=== PATIENT | female | born 1990 | race Caucasian/White ===

== ENCOUNTER 2020-07-20 17:42 | Observation (INO) | payer BC, SELFPAY ==
[2020-07-20 17:47] VITALS: BP 117/54; PULSE 130; RESP 18; TEMP 36.6; O2SAT 99
--- NOTE | 2020-07-20 17:57 | ED.GENADUL_ITS ---
Discharge Plan Disposition Condition: Fair Discharge Details Chief Complaint: PMO BUSINESS ANALYST Admit Date/Time: 07/20/20 19:14 Admit Provider: Sary Danielson Attending Provider: Sary Danielson Primary Care Provider: None,None ED Provider: Rosenda Pena Discharge Instructions Activity:: Activity as Tolerated Equipment/Supplies:: No Equipment Needed Diet:: As Tolerated Discharge Orders Discharge Orders: Discharge Order (Routine); Ordered 07/21/20 Ordered By: Sary Danielson Discharge Data Discharge Date/Time-TO BE ENTERED AT DEPARTURE: 07/20/20 18:55 Medical Decision Making Patient is a pleasant 30-year-old female presenting today with chief complaint of left lower quadrant pain. She reports that she is 25 weeks gestation with her first . She states that she drove up her from [place] in the last few days and began having some discomfort in this region last night. States the pain can radiate to the left flank as well as to the mid anterior left thigh. She states that she has been having some vaginal discharge but states that the slight increase for her normal vaginal discharge. She denies any bloody discharge. Said that she been having normal bowel movements. No change in urinary habits. No fevers or chills. Reports that the pain has been severe enough to induce nausea but no vomiting. Has had diminished appetite but states that this is again related to pain. States that thus far she has had an uncomplicated normal . On exam, patient appears anxious and uncomfortable. She is tachycardic with heart rate of 130. Lung sounds are clear. Patient denies feeling short of breath. No chest pain. She has no lower extremity edema, calves are soft and nontender. 2+ distal pulses. Abdominal exam is consistent with gestational age. She is clearly tender on the left lower quadrant. No peritoneal findings. Plan to give the patient IV acetaminophen and morphine to help with discomfort. heart rate 160. Consulted with Dr. Danielson. Considered unusual presentation of appendicitis, ovarian torsion, diverticulitis, DVT, kidney stone. Patient and her did describe up from [place] few weeks ago to [place] and subsequently from [place] to [place]. Patient does not otherwise exam would like a DVT. History is not consistent with premature labor. Dr. Danielson feels the patient should be admitted and placed on a monitor. She advised that she will keep patient comfortable overnight and evaluate with an ultrasound tomorrow. I did discuss plan with the patient. She is in agreement with admission and ultrasound tomorrow. This would be the safest option to avoid radiation. I also spoke with the patient and let him know about the plan. He is staying locally. Patient only received 1 mg of morphine. Reports feeling improved with the IV acetaminophen. She does appear much more calm with this plan set in place with medications on board. Labs reviewed. Like elevated at 14.4. Persistently anemic with hemoglobin 11.1. Potassium slightly low at 2, plan to replenish this orally. Lipase within normal limits. She did have ketones in her urine but otherwise no abnormalities, nothing to suggest infection. Patient transferred up to labor and delivery unit in stable condition. HPI General Mode of arrival: ambulatory . Date/Time Provider Initiated Documentation: 07/20/20 17:56 . Limitations to Documentation: no limitations . Information obtained by: patient and RN notes reviewed . History of Present Illness 30 year old F presents to the emergency department with the chief complaint of LLQ abdominal pain, described as severe, with intensity rated at 8. Quality is described as stabbing, and is localized to the abdomen. Patient extremity (anterior left mid thigh). Patient started experiencing this day(s) (yesterday evening) and it has been constant and intermittent (constant pain with intermittent spikes in pain). No relieving factors improve symptom(s), No exacerbating factors reported . Patient notes nausea/vomiting (reports nausea, feels this is pain induced); denies chest pain, cough, fever/chills, headaches, loss of appetite, rash, shortness of breath and weakness. Patient did receive the following treatments prior to arrival, none Related Data Home Medications Medication Instructions Recorded Confirmed ascorbic acid (vitamin C) [Vitamin 1,500 mg PO DAILY 07/20/20 07/20/20 C] no.144-folic acid 1 tab PO DAILY 07/20/20 07/20/20 [] hydromorphone 2 mg tablet 2 mg PO Q6H PRN #8 tab MDD 4tablets 07/21/20 ondansetron 4 mg disintegrating 4 mg PO Q8H PRN #10 tab 07/21/20 tablet Previous Rx's Medication Instructions Recorded hydromorphone 2 mg tablet 2 mg PO Q6H PRN #8 tab MDD 4tablets 07/21/20 ondansetron 4 mg disintegrating 4 mg PO Q8H PRN #10 tab 07/21/20 tablet Allergies Allergy/AdvReac Type Severity Reaction Status Date / Time No Known Allergies Allergy Unverified 07/20/20 17:51 General Stated Complaint: PMO BUSINESS ANALYST EVELYN: 2 Review of Systems Constitutional Constitutional: Reports as per HPI, Denies chills, Denies fatigue, Denies fever(s) and Denies headache(s) ENT Ears, Nose, Mouth, and Throat: Denies headache(s) Cardiovascular Cardiovascular: Reports as per HPI, Denies chest pain and Denies dyspnea Respiratory Respiratory: Reports as per HPI, Denies cough and Denies dyspnea Gastrointestinal Gastrointestinal: Reports as per HPI Musculoskeletal Musculoskeletal: Reports as per HPI and Denies back pain Integumentary/Breasts Skin/Breast: Reports as per HPI and Denies rash Neurologic Neurologic: Reports as per HPI and Denies headache(s) Endocrine Endocrine: Denies fatigue PFSH Medical History (Updated 07/21/20 @ 12:44 by Sary Danielson MD) LLQ pain Rh negative state in antepartum period Surgical History (Updated 07/20/20 @ 19:47 by Sary Danielson MD) History of tonsillectomy Family History (Updated 07/20/20 @ 19:51 by Sary Danielson MD) Mother , 01/2020 from lung cancer 58yo Cancer Social History (Updated 07/20/20 @ 19:50 by Sary Danielson MD) Smoking/Tobacco Use Status: Never Smoking risk assessment performed?: Yes Alcohol Intake: never Drug use: Never Household members: spouse and other Details: H-Morro, in relationship since HS. Work together from home Housing: other Details: home in [place]. Have cabin in [place] - travel for leisure Number of Children: 0 current occupation: [employer] Sexually active: Yes Current gender identity: female Do you feel safe at home: Yes Do you feel safe in your relationship?: Yes History History 1 Para Hx # Term Pregnancies Multiple births Hx # Pregnancies Ectopic pregnancies AB induced Hx Number of Living Children 0 AB spontaneous Exam Const General: cooperative, healthy appearing, uncomfortable, no acute distress, well developed and anxious Nutritional Appearance: average body habitus and well nourished Orientation: alert and awake [facility] Head: normal to inspection Mouth: moist mucous membranes Resp Effort & Inspection: normal respiratory effort, able to speak in complete sentences and no respiratory distress Auscultation: clear to auscultation bilaterally, no rales, no rhonchi and no wheezes Cardio Rate: tachycardic Rhythm: regular rhythm Heart Sounds: S1 normal and S2 normal GI Inspection: normal to inspection (appropriate for gestational age) Palpation: soft, no hepatosplenomegaly, not firm, no guarding, no masses, not rigid and tender in the LLQ; with no rebound tenderness Percussion: normal to percussion Back/Spine/Pelvis Back: no CVA tenderness Skin General skin exam: no rashes or lesions noted Trauma: no lacerations or abrasions Neuro General: patient alert and patient awake Cognition: normal cognition Speech: speech normal Gait: normal gait Extrem General: normal to inspection, no pedal edema, no calf tenderness and normal gait Psych Appearance: grossly normal and well kempt Mental Status: mental status grossly normal Speech and Movement: speech and movement normal Course Vital Signs Vital signs: Vital Signs Temperature 36.6 C 07/20/20 17:47 Pulse 130 H 07/20/20 17:47 Respiratory Rate 18 07/20/20 17:47 Blood Pressure 117/54 L 07/20/20 17:47 Pulse Oximetry 99 07/20/20 17:47 Temperature 36.6 C 07/20/20 17:47 Temperature Source Temporal Artery Scan 07/20/20 17:47 Pulse 130 H 07/20/20 17:47 Respiratory Rate 18 07/20/20 17:47 Respiratory Effort Non-Labored 07/20/20 17:55 Blood Pressure 117/54 L 07/20/20 17:47 Blood Pressure Position Sitting 07/20/20 17:47 Pulse Oximetry 99 07/20/20 17:47 Oxygen Delivery Method Room Air 07/20/20 17:47 Oxygen Flow Rate 0 07/20/20 17:47 Pain Level 8 07/20/20 17:47
[2020-07-20] MEDS: Normal Saline Flush 10 ML SYR IVP (18:00)
[2020-07-20] MEDS: Normal Saline 1,000 ML 1000 ML IV (18:00)
[2020-07-20 18:13] LABS: Abs Immature Grans 0.07 10^3/uL (0.0-0.06); Absolute Eosinophil Count 0.07 10^3/uL (0.0-0.7); Absolute Lymphocyte Count 1.86 10^3/uL (1.2-3.4); Absolute Monocyte Count 0.59 10^3/uL (0.1-0.8); Absolute Neutrophil Count 11.79 10^3/uL (1.2-6.7); Basophils % 0.1; Eosinophils % 0.5; HGB 11.1 g/dL (11.2-15.7); Immature Grans % 0.5; Lymphocytes % 12.9; MCH 29.1 pg (27.0-33.0); MCHC 33.6 % (32.0-36.0); MCV 86.4 fL (80-95); MPV 8.1 fL (8.0-11.0); Monocytes % 4.1; Neutrophils % 81.9; Nucleated RBC 0 %; Platelet Count 323 10^3/uL (130-400); RBC 3.82 10^6/uL (3.93-5.22); RDW 13.1 % (11.7-14.6); RDW-SD 40.6 fL
[2020-07-20 18:14] LABS: Absolute Basophil Count 0.01 10^3/uL (0.0-0.2)
[2020-07-20 18:27] LABS: Bilirubin Negative (Negative); Blood Negative (Negative); Clarity Clear (Clear); Glucose Negative (Negative); Ketones >=160 mg/dL (Negative); Leukocyte Esterase Negative (Negative); Nitrite Negative (Negative); Specific Gravity 1.025 (1.005-1.025); Urobilinogen 0.2 EU/dL (Up TO 0.2)
[2020-07-20 18:32] LABS: ALT 14 U/L (14-59); AST 9 U/L (15-37); Albumin 2.8 g/dL (3.4-5.0); Alkaline Phosphatase 88 U/L (46-116); Anion Gap 12.3 mmol/L (3-11); BUN 4 mg/dL (7-18); Bilirubin, Total 0.2 mg/dL (0.2-1.0); CO2 22.7 mmol/L (21.0-32.0); CREATININE 0.5 mg/dL (0.55-1.02); Calcium 8.7 mg/dL (8.5-10.1); Chloride 103 mmol/L (98-107); Glucose 113 mg/dL (74-106); Potassium 3.2 mmol/L (3.5-5.1); Sodium 138 mmol/L (136-145); Total Protein 7.3 g/dL (6.4-8.2)
[2020-07-20 18:33] LABS: Lipase 82 U/L (73-393)
[2020-07-20] MEDS: ACETAMINOPHEN 1,000 MG/100 ML BTL 400 MG IVPB (18:52)
[2020-07-20] MEDS: Normal Saline 1,000 ML 200 ML IV (18:52)
--- NOTE | 2020-07-20 18:53 | NUR.NOTE ---
Nursing Note: Morro partner [phone]
[2020-07-20 18:54] LABS: Source Nasopharynx
--- NOTE | 2020-07-20 18:54 | NUR.NOTE ---
Nursing Note: Morro conklin [phone] Carmen Purcell
[2020-07-20 19:19] VITALS: BP 121/73; PULSE 118; RESP 18; TEMP 36.8; O2SAT 97
[2020-07-20 19:19] LABS: COVID-19 PCR Negative (Negative); Influenza A PCR Negative (Negative); Influenza B PCR Negative (Negative); RSV PCR Negative (Negative)
[2020-07-20 19:30] VITALS: BP 121/73; PULSE 118; TEMP 36.8
--- NOTE | 2020-07-20 19:41 | W.PM.HP.N ---
Date of service: 07/20/20 Time of Service: 19:42 Assessment and Plan Assessment and plan (1) LLQ pain: Status: Acute Assessment and plan: Differential diagnosis includes left ovarian cyst versus fibroid uterus versus ovarian torsion. Plan at this time is to administer pain medication to the patient and have a pelvic ultrasound performed in the morning. (2) : Status: Acute Assessment and plan: Patient has received care [id number]. She is currently 25-6/7 weeks estimated stational age. has been uncomplicated. (3) Rh negative state in antepartum period: Status: Acute History of Present Illness History of Present Illness Chief Complaint: Pt is a 30yo female currently 25w6d EGA with LLQ pain Consults Consult date: 07/20/20 Requesting physician: Rosenda Pena Review of Systems Narrative: Pt experienced mild LLQ pain ~ 2w ago that resolved in 24hr. Other navarro unremarkable course. Pain began yesterday and required Tylenol last night. Increased in severity today. Localized to LLQ, exacerbated by stretching or lifting L leg. Nauseated today. No emesis. No contractions. + movement. No fevery Constitutional Constitutional: Reports as per HPI, Denies chills and Denies fever(s) Gastrointestinal Gastrointestinal: Reports abdominal pain (LLQ. Focally located above superior anterior illiac crest), Denies change in bowel habits, Denies diarrhea and Reports nausea Genitourinary Genitourinary: Reports amenorrhea, Denies vaginal discharge and Denies vaginal odor Musculoskeletal Musculoskeletal: Reports system reviewed and no additional complaints, except as documented Psychiatric Psychiatric: Reports anxiety (regarding pain and effect on fetus and ) [facility] Medical History (Updated 07/20/20 @ 20:02 by Sary Danielson MD) LLQ pain Rh negative state in antepartum period Surgical History (Updated 07/20/20 @ 19:47 by Sary Danielson MD) History of tonsillectomy Family History (Updated 07/20/20 @ 19:51 by Sary Danielson MD) Mother , 01/2020 from lung cancer 58yo Cancer Social History (Updated 07/20/20 @ 19:50 by Sary Dainelson MD) Smoking/Tobacco Use Status: Never Smoking risk assessment performed?: Yes Alcohol Intake: never Drug use: Never Household members: spouse and other Details: Liudmila-Morro, in relationship since HS. Work together from home Housing: other Details: home in [place]. Have cabin in [place] - travel for leisure Number of Children: 0 current occupation: [employer] Sexually active: Yes Current gender identity: female Do you feel safe at home: Yes Do you feel safe in your relationship?: Yes History History 1 Para Hx # Term Pregnancies Multiple births Hx # Pregnancies Ectopic pregnancies AB induced Hx Number of Living Children 0 AB spontaneous Meds Home Medications and Allergies Home Medications Medication Instructions Recorded Confirmed Type ascorbic acid (vitamin C) [Vitamin 1,500 mg PO DAILY 07/20/20 07/20/20 History C] no.144-folic acid 1 tab PO DAILY 07/20/20 07/20/20 History [] Allergies Allergy/AdvReac Type Severity Reaction Status Date / Time No Known Allergies Allergy Unverified 07/20/20 17:51 Exam Narrative Exam Narrative: In the emergency department patient received 1 mg IV morphine and IV Tylenol. Upon arrival to the floor she was able to ambulate to the toilet. She has difficulty lifting her left leg onto the bed secondary to pelvic discomfort Const General: no acute distress and anxious Nutritional Appearance: average body habitus Orientation: alert, awake and oriented x3 Neck Neck: normal visual inspection Thyroid: thyroid normal Lymphatic: no lymphadenopathy noted Resp Effort & Inspection: normal respiratory effort Auscultation: clear to auscultation bilaterally Cardio Rate: tachycardic Rhythm: regular rhythm GI Inspection: normal to inspection Palpation: soft, no hepatosplenomegaly and other (Gravid. No focal uterine tenderness. Pain elicited as noted on H&P) Auscultation: normal bowel sounds General: No CVA tenderness Other: Vaginal exam: Cervix closed firm long nontender. No adnexal masses appreciated. Fetus in variable position as noted on vaginal exam Skin General skin exam: no rashes or lesions noted (Tattoo on dorsum of foot) Extrem General: normal to inspection, full ROM and no clubbing, cyanosis or edema Psych Appearance: disheveled Mental Status: mental status grossly normal Speech and Movement: speech and movement normal Mood: congruent mood Affect: normal affect Attitude: cooperative Thought Process: normal Thought Content: normal Insight: insight good Judgment: judgment good Results Labs Result diagrams: 07/20/20 18:00 07/20/20 18:00 Labs: Laboratory Results - last 24 hr 07/20/20 07/20/20 07/20/20 18:00 18:00 18:00 WBC 14.40 H RBC 3.82 L Hgb 11.1 L Hct 33.0 L MCV 86.4 MCH 29.1 MCHC 33.6 RDW 13.1 Plt Count 323 MPV 8.1 Immature Gran % 0.5 Neutrophils % 81.9 Lymphocytes % 12.9 Monocytes % 4.1 Eosinophils % 0.5 Basophils % 0.1 Nucleated RBC % 0 Absolute Neutrophils 11.79 H Absolute Lymphocytes 1.86 Absolute Monocytes 0.59 Absolute Eosinophils 0.07 Absolute Basophils 0.01 Sodium 138 Potassium 3.2 L Chloride 103 Carbon Dioxide 22.7 Anion Gap 12.3 H BUN 4 L Creatinine 0.5 L Estimated GFR/1.73 m2 >= 60.00 Glucose 113 H Calcium 8.7 Total Bilirubin 0.2 AST 9 L ALT 14 Alkaline Phosphatase 88 Total Protein 7.3 Albumin 2.8 L Lipase Urine Color Urine Clarity Urine pH Ur Specific [place] Urine Protein Urine Ketones Urine Blood Urine Nitrite Urine Bilirubin Urine Urobilinogen Ur Leukocyte Esterase Urine Glucose COVID-19 Source SARS-CoV-2 (PCR) Influenza Type A (PCR) Influenza Type B (PCR) RSV (PCR) Patient ABO/Rh A Negative Antibody Screen Negative 07/20/20 07/20/20 07/20/20 18:00 18:20 18:25 WBC RBC Hgb Hct MCV MCH MCHC RDW Plt Count MPV Immature Gran % Neutrophils % Lymphocytes % Monocytes % Eosinophils % Basophils % Nucleated RBC % Absolute Neutrophils Absolute Lymphocytes Absolute Monocytes Absolute Eosinophils Absolute Basophils Sodium Potassium Chloride Carbon Dioxide Anion Gap BUN Creatinine Estimated GFR/1.73 m2 Glucose Calcium Total Bilirubin AST ALT Alkaline Phosphatase Total Protein Albumin Lipase 82 Urine Color Yellow Urine Clarity Clear Urine pH 7.0 Ur Specific [place] 1.025 Urine Protein Negative Urine Ketones >=160 H Urine Blood Negative Urine Nitrite Negative Urine Bilirubin Negative Urine Urobilinogen 0.2 Ur Leukocyte Esterase Negative Urine Glucose Negative COVID-19 Source Nasopharynx SARS-CoV-2 (PCR) Negative Influenza Type A (PCR) Negative Influenza Type B (PCR) Negative RSV (PCR) Negative Patient ABO/Rh Antibody Screen Last Vital Signs Temp 98.2 F 07/20/20 19:19 Pulse 118 H 07/20/20 19:19 Resp 18 02/07/21 19:19 BP 121/73 07/20/20 19:19 Pulse Ox 97 07/20/20 19:19 COVID-19 Screening Have you, or household traveled for leisure in last 14 days?: Yes Had IN PERSON contact w/suspected or confirmed C-19 person: No
[2020-07-20] MEDS: Lactated Ringers 1,000 ML 125 ML IV (19:56)
[2020-07-20] MEDS: oxyCODONE 5 MG TAB PO ×2 (20:39→22:27)
[2020-07-20 21:12] LABS: *AMPHETAMINES SCREEN URINE Negative (Negative); *BARBITURATES SCREEN URINE Negative (Negative); *BENZODIAZEPINES SCREEN URINE Negative (Negative); Cannabinoids THC Negative (Negative); Cocaine Screen,Urine Negative (Negative); METHADONE URINE SCREEN Negative (Negative); OPIATES URINE SCREEN POSITIVE (Negative); Tricyclic Antidepressants Negative (Negative)
[2020-07-20 21:25] VITALS: RESP 18
[2020-07-20 22:38] VITALS: BP 127/79; PULSE 121; RESP 18; TEMP 36.5; O2SAT 98
--- NOTE | 2020-07-21 | DI.US_ITS ---
EXAM: US OB [facility] WEIGHT CLINICAL HISTORY: LLQ pain at 25w EGA.. TECHNIQUE: Transabdominal obstetrical ultrasound performed. COMPARISON: No exams were available for comparison FINDINGS: Transabdominal obstetrical ultrasound performed. FINDINGS: Number of fetuses: One. position: Breech. Placental location: Anterior. Unremarkable. No evidence of previa. Uterus: There is a 1.5 x 1 cm hypoechoic mass in the anterior uterus which may represent a small fibr oid. BIOMETRIC DATA: BPD: 61 mm = 24 weeks 5 days HC: 238 mm = 25 weeks 6 days AC: 215 mm = 26 weeks FL: 47 mm = 25 weeks 5 days EFW: 855 grms 56% Composite Age: 25 weeks 4 days EDC: 10/30/2020 Heart Rate: 143BPM Amniotic fluid index: 19.8 cm. Visually, amount of fluid is within normal limits. Left ovary: Visualized and grossly unremarkable. Normal color flow is identified. IMPRESSION: 1. Single live intrauterine gestation as above. 2. Estimated weight is 855gms. 3. Amniotic fluid index is 19.8 cm. Visually within normal limits. DATA REPOSITORY:
--- NOTE | 2020-07-21 00:37 | NUR.NOTE ---
Nurses Note: Pt awake but reports ability to sleep on and off. Pt rates pain 2-3/10 and appears comfortable
[2020-07-21] MEDS: oxyCODONE 5 MG TAB PO ×2 (01:49→06:02)
[2020-07-21] MEDS: Acetaminophen 325 MG TAB PO ×2 (01:50→13:38)
[2020-07-21] MEDS: Lactated Ringers 1,000 ML 125 ML IV (03:31)
[2020-07-21 05:09] VITALS: BP 112/63; PULSE 122; RESP 16; TEMP 36.5; O2SAT 98
[2020-07-21] MEDS: Ondansetron 4 MG TAB PO (05:39)
[2020-07-21 07:17] LABS: HCT 27.8 % (36.0-46.0); HGB 9.5 g/dL (11.2-15.7); MCH 29.1 pg (27.0-33.0); MCHC 34.2 % (32.0-36.0); MCV 85.3 fL (80-95); Platelet Count 262 10^3/uL (130-400); RBC 3.26 10^6/uL (3.93-5.22); RDW 13.1 % (11.7-14.6); RDW-SD 40.5 fL; WBC 11.54 10^3/uL (4.4-10.8)
[2020-07-21 07:27] VITALS: BP 117/66; PULSE 108; RESP 20; TEMP 36.5; O2SAT 98
--- NOTE | 2020-07-21 07:32 | W.PM.PROGNOT ---
Date of Service Date of service: 07/21/20 Time of Service: 07:32 Assessment and Plan Assessment and plan (1) LLQ pain: Status: Acute (2) : Status: Acute Qualifiers: Weeks of gestation: 26 weeks Qualified Code(s): Z3A.26 - 26 weeks gestation of Subjective Subjective Patient reports: still having pain, pain is less (took oxycodone 3x during night.), nausea and vomiting (after taking oxycodone on empty stomach) Exam Narrative Exam Narrative: HD2 currently 26w EGA admitted for LLQ pain. Focal tenderness last night has improved but not resolved. VSS. WBC c/w . Plan for u/s in DI this morning. Const General: disheveled (sitting up in bed.) Nutritional Appearance: average body habitus Orientation: alert, awake and oriented x3 Resp Effort & Inspection: normal respiratory effort Cardio Rate: tachycardic GI Inspection: normal to inspection and other Palpation: mass (Gravid. Fundus above umbilicus) and tender in the LLQ (improved but not completely resolved. Focally tender L side of uterus.) General: deferred Other: FHR 150s. No contractions during the night. Skin General skin exam: no rashes or lesions noted Extrem General: normal to inspection Psych Appearance: grossly normal Mental Status: mental status grossly normal Speech and Movement: speech and movement normal Objective Last Vital Signs Temp 97.7 F 07/21/20 05:09 Pulse 122 H 07/21/20 05:09 Resp 16 07/21/20 05:09 BP 112/63 07/21/20 05:09 Pulse Ox 98 07/21/20 05:09 Laboratory Results - last 24 hr 07/20/20 07/20/20 07/20/20 18:00 18:00 18:00 WBC 14.40 H RBC 3.82 L Hgb 11.1 L Hct 33.0 L MCV 86.4 MCH 29.1 MCHC 33.6 RDW 13.1 Plt Count 323 MPV 8.1 Immature Gran % 0.5 Neutrophils % 81.9 Lymphocytes % 12.9 Monocytes % 4.1 Eosinophils % 0.5 Basophils % 0.1 Nucleated RBC % 0 Absolute Neutrophils 11.79 H Absolute Lymphocytes 1.86 Absolute Monocytes 0.59 Absolute Eosinophils 0.07 Absolute Basophils 0.01 Sodium 138 Potassium 3.2 L Chloride 103 Carbon Dioxide 22.7 Anion Gap 12.3 H BUN 4 L Creatinine 0.5 L Estimated GFR/1.73 m2 >= 60.00 Glucose 113 H Calcium 8.7 Total Bilirubin 0.2 AST 9 L ALT 14 Alkaline Phosphatase 88 Total Protein 7.3 Albumin 2.8 L Lipase Urine Color Urine Clarity Urine pH Ur Specific [place] Urine Protein Urine Ketones Urine Blood Urine Nitrite Urine Bilirubin Urine Urobilinogen Ur Leukocyte Esterase Urine Glucose Urine Opiates Screen Urine Methadone Screen Ur Barbiturates Screen Ur Tricyclics Screen Ur Amphetamines Screen U Benzodiazepines Scrn Urine Cocaine Screen Ur THC Screen COVID-19 Source SARS-CoV-2 (PCR) Influenza Type A (PCR) Influenza Type B (PCR) RSV (PCR) Patient ABO/Rh A Negative Antibody Screen Negative 07/20/20 07/20/20 07/20/20 18:00 18:20 18:25 WBC RBC Hgb Hct MCV MCH MCHC RDW Plt Count MPV Immature Gran % Neutrophils % Lymphocytes % Monocytes % Eosinophils % Basophils % Nucleated RBC % Absolute Neutrophils Absolute Lymphocytes Absolute Monocytes Absolute Eosinophils Absolute Basophils Sodium Potassium Chloride Carbon Dioxide Anion Gap BUN Creatinine Estimated GFR/1.73 m2 Glucose Calcium Total Bilirubin AST ALT Alkaline Phosphatase Total Protein Albumin Lipase 82 Urine Color Yellow Urine Clarity Clear Urine pH 7.0 Ur Specific [place] 1.025 Urine Protein Negative Urine Ketones >=160 H Urine Blood Negative Urine Nitrite Negative Urine Bilirubin Negative Urine Urobilinogen 0.2 Ur Leukocyte Esterase Negative Urine Glucose Negative Urine Opiates Screen Urine Methadone Screen Ur Barbiturates Screen Ur Tricyclics Screen Ur Amphetamines Screen U Benzodiazepines Scrn Urine Cocaine Screen Ur THC Screen COVID-19 Source Nasopharynx SARS-CoV-2 (PCR) Negative Influenza Type A (PCR) Negative Influenza Type B (PCR) Negative RSV (PCR) Negative Patient ABO/Rh Antibody Screen 07/20/20 07/21/20 20:40 07:10 WBC 11.54 H RBC 3.26 L Hgb 9.5 L Hct 27.8 L MCV 85.3 MCH 29.1 MCHC 34.2 RDW 13.1 Plt Count 262 MPV 8.0 Immature Gran % Neutrophils % Lymphocytes % Monocytes % Eosinophils % Basophils % Nucleated RBC % Absolute Neutrophils Absolute Lymphocytes Absolute Monocytes Absolute Eosinophils Absolute Basophils Sodium Potassium Chloride Carbon Dioxide Anion Gap BUN Creatinine Estimated GFR/1.73 m2 Glucose Calcium Total Bilirubin AST ALT Alkaline Phosphatase Total Protein Albumin Lipase Urine Color Urine Clarity Urine pH Ur Specific [place] Urine Protein Urine Ketones Urine Blood Urine Nitrite Urine Bilirubin Urine Urobilinogen Ur Leukocyte Esterase Urine Glucose Urine Opiates Screen Positive A Urine Methadone Screen Negative Ur Barbiturates Screen Negative Ur Tricyclics Screen Negative Ur Amphetamines Screen Negative U Benzodiazepines Scrn Negative Urine Cocaine Screen Negative Ur THC Screen Negative COVID-19 Source SARS-CoV-2 (PCR) Influenza Type A (PCR) Influenza Type B (PCR) RSV (PCR) Patient ABO/Rh Antibody Screen
--- NOTE | 2020-07-21 08:25 | NUR.NOTE ---
Nursing Note: pt down to diagnostic imaging for ultrasound [id number]
[2020-07-21] MEDS: Normal Saline Flush 10 ML SYR IVP ×2 (09:47→13:39)
[2020-07-21] MEDS: Ondansetron 4 MG/2 ML VIAL IVP ×2 (09:47→13:38)
[2020-07-21] MEDS: HYDROmorphone 2 MG TAB PO ×2 (10:13→13:38)
--- NOTE | 2020-07-21 12:18 | PGE_ITS ---
Date of Service Date of service: 07/21/20 Time of Service: 12:18 Assessment and Plan Assessment and plan (1) LLQ pain: Status: Acute Assessment and plan: Patient has improved with narcotic analgesics. OB ultrasound showed normal left adnexa and normal fetus morphology and normal- appearing uterus. Currently I find no infectious etiology or adnexal pathology causing her pain. Her exam is benign. It is possible that she is experiencing severe ligamentous discomfort. Plan at this time is to discharge to home with pain medicine and antiemetics and she will follow-up with her new provider in [place] tomorrow. Prescription will be sent to the [facility] in [place] with antiemetic and narcotic. I recommended against taking ibuprofen. (2) : Status: Acute Qualifiers: Weeks of gestation: 26 weeks Qualified Code(s): Z3A.26 - 26 weeks gestation of Subjective Subjective Patient reports: pain is less (LLQ pain 2/10 after dose of Dilaudid.), tolerating a regular diet, nausea (improved with ondonsetran) and afebrile Interval history since last seen: OB u/s completed this am. Nl L adnexa. No free fluid. Fetus and placentanormal. Insignificant uterine fibroid. Decreased Hbg most likely dilutional anemia. VSS. I discussed findings with pt and recommended that she be discharged to home with Dx of L ligament pain. Exam Const General: no acute distress Nutritional Appearance: average body habitus Orientation: alert, awake and oriented x3 GI Inspection: normal to inspection (gravid.) Palpation: soft, no hepatosplenomegaly and tender (palpation R lower uterine segment elicits slight pain in LLQ) in the LLQ (as before. less acute. no referred pain.) Percussion: normal to percussion Rectal Exam - female: deferred General: deferred Skin General skin exam: no rashes or lesions noted Extrem General: normal to inspection and normal exam except as noted (when lifts LLE pain produced LLQ. ) Psych Appearance: grossly normal Mental Status: mental status grossly normal Speech and Movement: speech and movement normal Mood: anxious mood Affect: normal affect Objective Last Vital Signs Temp 97.7 F 07/21/20 05:09 Pulse 122 H 07/21/20 05:09 Resp 16 07/21/20 05:09 BP 112/63 07/21/20 05:09 Pulse Ox 98 07/21/20 05:09 Laboratory Results - last 24 hr 07/20/20 07/20/20 07/20/20 18:00 18:00 18:00 WBC 14.40 H RBC 3.82 L Hgb 11.1 L Hct 33.0 L MCV 86.4 MCH 29.1 MCHC 33.6 RDW 13.1 Plt Count 323 MPV 8.1 Immature Gran % 0.5 Neutrophils % 81.9 Lymphocytes % 12.9 Monocytes % 4.1 Eosinophils % 0.5 Basophils % 0.1 Nucleated RBC % 0 Absolute Neutrophils 11.79 H Absolute Lymphocytes 1.86 Absolute Monocytes 0.59 Absolute Eosinophils 0.07 Absolute Basophils 0.01 Sodium 138 Potassium 3.2 L Chloride 103 Carbon Dioxide 22.7 Anion Gap 12.3 H BUN 4 L Creatinine 0.5 L Estimated GFR/1.73 m2 >= 60.00 Glucose 113 H Calcium 8.7 Total Bilirubin 0.2 AST 9 L ALT 14 Alkaline Phosphatase 88 Total Protein 7.3 Albumin 2.8 L Lipase Urine Color Urine Clarity Urine pH Ur Specific [place] Urine Protein Urine Ketones Urine Blood Urine Nitrite Urine Bilirubin Urine Urobilinogen Ur Leukocyte Esterase Urine Glucose Urine Opiates Screen Urine Methadone Screen Ur Barbiturates Screen Ur Tricyclics Screen Ur Amphetamines Screen U Benzodiazepines Scrn Urine Cocaine Screen Ur THC Screen COVID-19 Source SARS-CoV-2 (PCR) Influenza Type A (PCR) Influenza Type B (PCR) RSV (PCR) Patient ABO/Rh A Negative Antibody Screen Negative 07/20/20 07/20/20 07/20/20 18:00 18:20 18:25 WBC RBC Hgb Hct MCV MCH MCHC RDW Plt Count MPV Immature Gran % Neutrophils % Lymphocytes % Monocytes % Eosinophils % Basophils % Nucleated RBC % Absolute Neutrophils Absolute Lymphocytes Absolute Monocytes Absolute Eosinophils Absolute Basophils Sodium Potassium Chloride Carbon Dioxide Anion Gap BUN Creatinine Estimated GFR/1.73 m2 Glucose Calcium Total Bilirubin AST ALT Alkaline Phosphatase Total Protein Albumin Lipase 82 Urine Color Yellow Urine Clarity Clear Urine pH 7.0 Ur Specific [place] 1.025 Urine Protein Negative Urine Ketones >=160 H Urine Blood Negative Urine Nitrite Negative Urine Bilirubin Negative Urine Urobilinogen 0.2 Ur Leukocyte Esterase Negative Urine Glucose Negative Urine Opiates Screen Urine Methadone Screen Ur Barbiturates Screen Ur Tricyclics Screen Ur Amphetamines Screen U Benzodiazepines Scrn Urine Cocaine Screen Ur THC Screen COVID-19 Source Nasopharynx SARS-CoV-2 (PCR) Negative Influenza Type A (PCR) Negative Influenza Type B (PCR) Negative RSV (PCR) Negative Patient ABO/Rh Antibody Screen 07/20/20 07/21/20 20:40 07:10 WBC 11.54 H RBC 3.26 L Hgb 9.5 L Hct 27.8 L MCV 85.3 MCH 29.1 MCHC 34.2 RDW 13.1 Plt Count 262 MPV 8.0 Immature Gran % Neutrophils % Lymphocytes % Monocytes % Eosinophils % Basophils % Nucleated RBC % Absolute Neutrophils Absolute Lymphocytes Absolute Monocytes Absolute Eosinophils Absolute Basophils Sodium Potassium Chloride Carbon Dioxide Anion Gap BUN Creatinine Estimated GFR/1.73 m2 Glucose Calcium Total Bilirubin AST ALT Alkaline Phosphatase Total Protein Albumin Lipase Urine Color Urine Clarity Urine pH Ur Specific [place] Urine Protein Urine Ketones Urine Blood Urine Nitrite Urine Bilirubin Urine Urobilinogen Ur Leukocyte Esterase Urine Glucose Urine Opiates Screen Positive A Urine Methadone Screen Negative Ur Barbiturates Screen Negative Ur Tricyclics Screen Negative Ur Amphetamines Screen Negative U Benzodiazepines Scrn Negative Urine Cocaine Screen Negative Ur THC Screen Negative COVID-19 Source SARS-CoV-2 (PCR) Influenza Type A (PCR) Influenza Type B (PCR) RSV (PCR) Patient ABO/Rh Antibody Screen
--- NOTE | 2020-07-21 12:32 | W.PM.DS.N ---
Date of service: 07/21/20 Time of Service: 12:32 DS: Diagnosis Discharge Diagnosis (1) LLQ pain: Status: Acute (2) : Status: Acute (3) History of uterine fibroid: Status: Acute Discharge Plan Disposition Patient Disposition: HOME Condition: Fair Discharge Details Reason For Visit: LLQ PAIN @ [id number] EGA Admit Date/Time: 07/20/20 19:14 Admit Provider: Sary Danielson Attending Provider: Sary Danielson Primary Care Provider: None,None Hospital Course Hospital Course: Patient is a 30-year-old G1, P0 female currently 26 weeks estimated gestational age at [facility] emergency department with 24 hours of worsening left lower quadrant pain. She did experience similar discomfort approximately 2 weeks prior but it resolved spontaneously and was not as strong. Her evaluation included CBC which showed normal WBC mild anemia, normal platelets, mild hypokalemia, and otherwise normal electrolytes and normal UA and urine tox screen. Wound on 07/21/2020 which showed normal fetus of a process appropriate gestational age and normal morphology, a normal left adnexa, no evidence of pelvic pathology. Patient's pain was initially treated with Percocet which resulted in nausea and vomiting she was switched to Dilaudid 2 mg every 4-6 hours with ondansetron as needed. Plan at this time is to discharge her to home with prescription for ondansetron and Dilaudid have her travel back to [place] to keep her previously scheduled appointment with her new.. I feel that she is stable to travel. Home Meds and New Rx's Prescriptions: No Action ascorbic acid (vitamin C) [Vitamin C] 500 mg Tablet,Chewable 1,500 mg PO DAILY RF: 0 400 mcg Tablet,Chewable 1 tab PO DAILY RF: 0 Discharge Instructions Additional Instructions: A prescription has been called for Dilaudid 2 mg 1 tablet every 6 hours along with Tylenol 6 as needed to treat your pain. You have a prescription for an antinausea medicine called ondansetron which will be available at the pharmacy. I recommend you taking Tylenol and Dilaudid together every 6 hours and not exerting yourself for the next 48 hours. Activity:: Activity as Tolerated Equipment/Supplies:: No Equipment Needed Diet:: As Tolerated Discharge Orders Discharge Orders: Discharge Order (Routine); Ordered 07/21/20 Ordered By: Sary Danielson DS: Summary Time Spent with Patient providing and/or coordinating discharge services: Less than 30 minutes Status at Discharge Functional status at discharge: independent ambulation Overall status at discharge: patient is progressing back to baseline Mental Status: mental status grossly normal Speech and Movement: speech and movement normal Mood: anxious mood Affect: normal affect Exam Const General: no acute distress Nutritional Appearance: average body habitus Orientation: alert, awake and oriented x3 GI Inspection: normal to inspection (gravid.) Palpation: soft, no hepatosplenomegaly and tender (palpation R lower uterine segment elicits slight pain in LLQ) in the LLQ (as before. less acute. no referred pain.) Percussion: normal to percussion Rectal Exam - female: deferred General: deferred Skin General skin exam: no rashes or lesions noted Extrem General: normal to inspection and normal exam except as noted (when lifts LLE pain produced LLQ. ) Psych Appearance: grossly normal Mental Status: mental status grossly normal Speech and Movement: speech and movement normal Mood: anxious mood Affect: normal affect DS: Data Vitals/I&O Vitals and I&O: Vital Signs Temperature 97.7 F 07/21/20 05:09 Temperature Source Temporal Artery Scan 07/20/20 17:47 Pulse 122 H 07/21/20 05:09 Respiratory Rate 16 07/21/20 05:09 Respiratory Effort Non-Labored 07/20/20 17:55 Blood Pressure 112/63 07/21/20 05:09 Blood Pressure Mean 79 07/21/20 05:09 Blood Pressure Position Sitting 07/20/20 17:47 Pulse Oximetry 98 07/21/20 05:09 Oxygen Delivery Method Room Air 07/20/20 17:47 Oxygen Flow Rate 0 07/20/20 17:47 Pain Level 2 07/21/20 11:13 Intake & Output 07/20/20 07/21/20 07/21/20 23:59 11:59 23:59 Intake Total 1213.333 / 5868.803 4369 / 2235 900 / 2235 Output Total 450 / 450 1950 / 1950 Balance 763.333 / 763.333 -615 / 285 900 / 285 Weight 172 lb 6.067 oz Intake: IV 1213.333 / 1213.333 950 / 1850 900 / 1850 Oral 385 / 385 Output: Urine 450 / 450 1750 / 1750 Emesis 200 / 200 Other: Urine Color Pale Yellow Urine Appearance Clear Urine Odor None Voiding Methods Toilet Data Completed and Pending Labs on day of discharge: Labs from last 24 hours 07/21/20 07/20/20 07/20/20 07:10 20:40 18:25 WBC 11.54 H RBC 3.26 L Hgb 9.5 L Hct 27.8 L MCV 85.3 MCH 29.1 MCHC 34.2 RDW 13.1 Plt Count 262 MPV 8.0 Immature Gran % Neutrophils % Lymphocytes % Monocytes % Eosinophils % Basophils % Nucleated RBC % Absolute Neutrophils Absolute Lymphocytes Absolute Monocytes Absolute Eosinophils Absolute Basophils Sodium Potassium Chloride Carbon Dioxide Anion Gap BUN Creatinine Estimated GFR/1.73 m2 Glucose Calcium Total Bilirubin AST ALT Alkaline Phosphatase Total Protein Albumin Lipase Urine Color Urine Clarity Urine pH Ur Specific [place] Urine Protein Urine Ketones Urine Blood Urine Nitrite Urine Bilirubin Urine Urobilinogen Ur Leukocyte Esterase Urine Glucose Urine Opiates Screen Positive A Urine Methadone Screen Negative Ur Barbiturates Screen Negative Ur Tricyclics Screen Negative Ur Amphetamines Screen Negative U Benzodiazepines Scrn Negative Urine Cocaine Screen Negative Ur THC Screen Negative COVID-19 Source Nasopharynx SARS-CoV-2 (PCR) Negative Influenza Type A (PCR) Negative Influenza Type B (PCR) Negative RSV (PCR) Negative Patient ABO/Rh Antibody Screen 07/20/20 07/20/20 07/20/20 18:20 18:00 18:00 WBC RBC Hgb Hct MCV MCH MCHC RDW Plt Count MPV Immature Gran % Neutrophils % Lymphocytes % Monocytes % Eosinophils % Basophils % Nucleated RBC % Absolute Neutrophils Absolute Lymphocytes Absolute Monocytes Absolute Eosinophils Absolute Basophils Sodium Potassium Chloride Carbon Dioxide Anion Gap BUN Creatinine Estimated GFR/1.73 m2 Glucose Calcium Total Bilirubin AST ALT Alkaline Phosphatase Total Protein Albumin Lipase 82 Urine Color Yellow Urine Clarity Clear Urine pH 7.0 Ur Specific [place] 1.025 Urine Protein Negative Urine Ketones >=160 H Urine Blood Negative Urine Nitrite Negative Urine Bilirubin Negative Urine Urobilinogen 0.2 Ur Leukocyte Esterase Negative Urine Glucose Negative Urine Opiates Screen Urine Methadone Screen Ur Barbiturates Screen Ur Tricyclics Screen Ur Amphetamines Screen U Benzodiazepines Scrn Urine Cocaine Screen Ur THC Screen COVID-19 Source SARS-CoV-2 (PCR) Influenza Type A (PCR) Influenza Type B (PCR) RSV (PCR) Patient ABO/Rh A Negative Antibody Screen Negative 07/20/20 07/20/20 18:00 18:00 WBC 14.40 H RBC 3.82 L Hgb 11.1 L Hct 33.0 L MCV 86.4 MCH 29.1 MCHC 33.6 RDW 13.1 Plt Count 323 MPV 8.1 Immature Gran % 0.5 Neutrophils % 81.9 Lymphocytes % 12.9 Monocytes % 4.1 Eosinophils % 0.5 Basophils % 0.1 Nucleated RBC % 0 Absolute Neutrophils 11.79 H Absolute Lymphocytes 1.86 Absolute Monocytes 0.59 Absolute Eosinophils 0.07 Absolute Basophils 0.01 Sodium 138 Potassium 3.2 L Chloride 103 Carbon Dioxide 22.7 Anion Gap 12.3 H BUN 4 L Creatinine 0.5 L Estimated GFR/1.73 m2 >= 60.00 Glucose 113 H Calcium 8.7 Total Bilirubin 0.2 AST 9 L ALT 14 Alkaline Phosphatase 88 Total Protein 7.3 Albumin 2.8 L Lipase Urine Color Urine Clarity Urine pH Ur Specific [place] Urine Protein Urine Ketones Urine Blood Urine Nitrite Urine Bilirubin Urine Urobilinogen Ur Leukocyte Esterase Urine Glucose Urine Opiates Screen Urine Methadone Screen Ur Barbiturates Screen Ur Tricyclics Screen Ur Amphetamines Screen U Benzodiazepines Scrn Urine Cocaine Screen Ur THC Screen COVID-19 Source SARS-CoV-2 (PCR) Influenza Type A (PCR) Influenza Type B (PCR) RSV (PCR) Patient ABO/Rh Antibody Screen PFSH Medical History (Updated 07/21/20 @ 12:33 by Sary Danielson MD) LLQ pain Rh negative state in antepartum period Surgical History (Updated 07/20/20 @ 19:47 by Sary Danielson MD) History of tonsillectomy Family History (Updated 07/20/20 @ 19:51 by Sary Danielson MD) Mother , 01/2020 from lung cancer 58yo Cancer Social History (Updated 07/20/20 @ 19:50 by Sary Danielson MD) Smoking/Tobacco Use Status: Never Smoking risk assessment performed?: Yes Alcohol Intake: never Drug use: Never Household members: spouse and other Details: [place], in relationship since HS. Work together from home Housing: other Details: home in [place]. Have cabin in [place] - travel for leisure Number of Children: 0 current occupation: [employer] Sexually active: Yes Current gender identity: female Do you feel safe at home: Yes Do you feel safe in your relationship?: Yes History History 1 Para Hx # Term Pregnancies Multiple births Hx # Pregnancies Ectopic pregnancies AB induced Hx Number of Living Children 0 AB spontaneous
--- NOTE | 2020-07-23 17:00 | W.OBNST ---
Date of service: 07/23/20 Time of Service: 17:01 NST Evaluation Reason for NST Reasons for Nonstress Test: OTHER, SEE COMMENT Reason for NST Other: left abd pain Gestational Age Gestational Age in Weeks and Days: 25 Weeks and 2Days Test and Monitor Explained Test/Monitor Explained: Test Explained, Monitor Explained and Patient Verbalized Understanding Vital Signs Blood Pressure: 121/73 Pulse: 118 Temperature: 98.2 F NST Information Date on Monitor: 07/20/20 Time on Monitor: 19:10 NST Interventions: IV Fluids Note NST Note Note: NST not really performed secondary to early gestational age.. FHR monitoring performed after pt arrived on Center and was appropriate for gestational age. NST Reviewed and Verified by: Sary Danielson
[2020-07-23 17:01] VITALS: BP 121/73; PULSE 118; TEMP 36.8
== END 2020-07-21 14:20 | disposition home or self-care (01) ==
LOC: ER 19:02 → OBS 19:44
PROVIDERS: Admitting Provider Obstetrics & Gynecology Gynecology; Emergency Provider Physician Assistant; Visit Provider Obstetrics & Gynecology Gynecology
DX: O26.892 Other specified pregnancy related conditions, second trimester (principal); R10.32 Left lower quadrant pain; Z3A.25 25 weeks gestation of pregnancy; O36.0920 Maternal care for other rhesus isoimmunization, second trimester, not applicable or unspecified; O99.012 Anemia complicating pregnancy, second trimester; D64.9 Anemia, unspecified; E87.6 Hypokalemia
CPT/HCPCS: 36415; 59025; 76816; 80053; 80307; 83690; 85027; 86850; 86900; 86901; 96360; 96361; 96374; 96375; 99221; 99231; 99238; 99285; NC; 81003; 85025; 99284; G0378; J0131; J2405; J8597